=== PATIENT | female | born 1950 | race Two or more races ===

== ENCOUNTER 2024-08-16 11:56 | Outpatient (CLI) | payer OTHER ==
[~2024-08-16 11:56] MED LIST: ASA325 MG PO; AVANDAMET 1 MG/1 TAB PO; ENALAPRIL MALEA20 MG PO; LIPITOR40 MG PO; METAGLIP 2.5/501 TAB PO
== END 2024-08-16 11:59 | disposition home or self-care (01) ==
LOC: RAD 11:56
PROVIDERS: ATTEND Orthopaedic Surgery
DX: S40.011A Contusion of right shoulder, initial encounter (principal)